=== PATIENT | male | born 1985 | race Hispanic/Latino ===

== ENCOUNTER 2018-02-12 19:56 | Observation (INO) | payer OTHER ==
[2018-02-12 20:48] LABS: Absolute Lymphocytes (CBC) 3.4 K/uL (0.7-4.9); Absolute Monocytes 0.8 K/uL (0.1-1.3); Absolute Neutrophil 7.5 K/uL (1.8-8.0); Eosinophils % 1.6 % (0-4.4); Hematocrit 56.1 % (39.6-49.0); Lymphocytes % 28.3 % (15.3-44.8); MCH 27.5 pg (27.0-35.0); MCV 84.5 fL (80-100); MPV 6.9 fL (7.6-11.3); Monocytes % 7.1 % (3.3-12.3); RBC Red Blood Cell Count 6.63 M/uL (4.33-5.43)
[2018-02-12 20:49] LABS: Protime INR 0.87
--- NOTE | 2018-02-12 20:51 | EDPHYS ---
Physician Documentation [facility] Name: Ascencion Saldana Age: 32 yrs Sex: Male : 1985 Arrival Date: 02/12/2018 Time: 19:58 Bed 25 Private MD: Ernesto Ramirez ED Physician Rey Reyes HPI: 02/12 20:23 This 32 yrs old Male presents to ER via Ambulatory with complaints of Chest catalina Pain. 20:23 The patient or guardian reports chest pain that is located primarily in the substernal catalina area. The pain radiates to the left shoulder, Associated signs and symptoms: Pertinent positives: shortness of breath. The chest pain is described as a heaviness, a pressure. Duration: The patient or guardian reports multiple episodes, that wax and wane. Modifying factors: The symptoms are alleviated by nothing. the symptoms are aggravated by nothing. Severity of pain: At its worst the pain was mild moderate in the emergency department the pain is unchanged. The patient has not experienced similar symptoms in the past. Historical: - Allergies: 20:16 No Known Allergies; bb - Home Meds: 21:07 enalapril maleate 10 mg Oral tab [Active]; Farxiga 10 mg oral tab 1 tab once daily bb [Active]; atorvastatin 20 mg oral tab 1 tab once daily [Active]; metformin 500 mg Oral tab [Active]; sertraline 100 mg oral tab [Active]; Bydureon subcutaneous subcutaneous [Active]; Novolog Sub-Q [Active]; - PMHx: 20:16 Depression; mental handicap; High Cholesterol; GERD; Sleep Apnea; bb 21:07 Diabetes - IDDM; bb - PSHx: 20:16 Cholecystectomy; bb - Immunization history:: Adult Immunizations up to date. - Social history:: Smoking status: Patient/guardian denies using tobacco, Patient/guardian denies using alcohol, street drugs. - Family history:: not pertinent. - Ebola Screening: : No symptoms or risks identified at this time. ROS: 20:23 Constitutional: Negative for fever, chills, and weight loss, Eyes: Negative for injury, catalina pain, redness, and discharge, ENT: Negative for injury, pain, and discharge, Neck: Negative for injury, pain, and swelling, Respiratory: Negative for shortness of breath, cough, wheezing, and pleuritic chest pain, Abdomen/GI: Negative for abdominal pain, nausea, vomiting, diarrhea, and constipation, Back: Negative for injury and pain, : Negative for injury, bleeding, discharge, and swelling, MS/Extremity: Negative for injury and deformity, Skin: Negative for injury, rash, and discoloration, Neuro: Negative for headache, weakness, numbness, tingling, and seizure, Psych: Negative for depression, anxiety, suicide ideation, homicidal ideation, and hallucinations, Allergy/Immunology: Negative for hives, rash, and allergies, Endocrine: Negative for neck swelling, polydipsia, polyuria, polyphagia, and marked weight changes, Hematologic/Lymphatic: Negative for swollen nodes, abnormal bleeding, and unusual bruising. 20:23 Cardiovascular: Positive for chest pain, of the chest. Exam: 20:23 Constitutional: This is a well developed, well nourished patient who is awake, alert, catalina and in no acute distress. Head/Face: Normocephalic, atraumatic. Eyes: Pupils equal round and reactive to light, extra-ocular motions intact. Lids and lashes normal. Conjunctiva and sclera are non-icteric and not injected. Cornea within normal limits. Periorbital areas with no swelling, redness, or edema. ENT: Nares patent. No nasal discharge, no septal abnormalities noted. Tympanic membranes are normal and external auditory canals are clear. Oropharynx with no redness, swelling, or masses, exudates, or evidence of obstruction, uvula midline. Mucous membranes moist. Neck: Trachea midline, no thyromegaly or masses palpated, and no cervical lymphadenopathy. Supple, full range of motion without nuchal rigidity, or vertebral point tenderness. No Meningismus. Chest/axilla: Normal chest wall appearance and motion. Nontender with no deformity. No lesions are appreciated. Cardiovascular: Regular rate and rhythm with a normal S1 and S2. No gallops, murmurs, or rubs. Normal PMI, no JVD. No pulse deficits. Respiratory: Lungs have equal breath sounds bilaterally, clear to auscultation and percussion. No rales, rhonchi or wheezes noted. No increased work of breathing, no retractions or nasal flaring. Abdomen/GI: Soft, non-tender, with normal bowel sounds. No distension or tympany. No guarding or rebound. No evidence of tenderness throughout. Back: No spinal tenderness. No costovertebral tenderness. Full range of motion. Male : Normal genitalia with no discharge or lesions. Skin: Warm, dry with normal turgor. Normal color with no rashes, no lesions, and no evidence of cellulitis. MS/ Extremity: Pulses equal, no cyanosis. Neurovascular intact. Full, normal range of motion. Neuro: Awake and alert, GCS 15, oriented to person, place, time, and situation. Cranial nerves II-XII grossly intact. Motor strength 5/5 in all extremities. Sensory grossly intact. Cerebellar exam normal. Normal gait. Psych: Awake, alert, with orientation to person, place and time. Behavior, mood, and affect are within normal limits. 20:23 Musculoskeletal/extremity: DVT Exam: no pain, no swelling, no tenderness, negative Homans' sign noted on exam, no appreciated bluish discoloration, no erythema, no increased warmth. Vital Signs: 20:16 BP 148 / 98; Pulse 91; Resp 14 S; Temp 98.2(O); Pulse Ox 96% on R/A; Weight 112.49 kg bb (R); Height 5 ft. 5 in. (165.10 cm) (R); Pain 8/10; 20:16 Body Mass Index 41.27 (112.49 kg, 165.10 cm) bb MDM: 20:17 Patient medically screened. [facility] 20:26 Data reviewed: vital signs, nurses notes, lab test result(s), EKG, radiologic studies, [facility] plain films. 02/12 20:17 Order name: Basic Metabolic Panel; Complete Time: 22:00 02/12 20:17 Order name: CBC with Diff; Complete Time: 22:00 02/12 20:17 Order name: LFT's; Complete Time: 22:00 02/12 20:17 Order name: Magnesium; Complete Time: 22:00 02/12 20: Order name: NT PRO-BNP; Complete Time: 22:00 02/12 20: Order name: PT-INR; Complete Time: 22:00 02/12 20:17 Order name: Troponin (emerg Dept Use Only); Complete Time: 22:00 02/12 20:22 Order name: Lipase; Complete Time: 22:00 [facility] 02/12 21:19 Order name: Urine Dipstick--Ancillary (enter results) ms 02/12 22:12 Order name: Urine Dipstick-Ancillary; Complete Time: 01:45 EDLA 02/13 02:26 Order name: Glucose, Ancillary Testing EDMS 02/13 06:01 Order name: CBC with Automated Diff EDMS 02/13 06:17 Order name: Troponin I EDMS 02/13 06:17 Order name: Basic Metabolic Panel EDMS 02/12 20:17 Order name: XRAY Chest (1 view) ea 02/12 20:17 Order name: EKG; Complete Time: 20:18 ea 02/12 20:17 Order name: Cardiac monitoring; Complete Time: 20:53 ea 02/12 20:17 Order name: EKG - Nurse/Tech; Complete Time: 20:54 ea 02/12 20:17 Order name: IV Saline Lock; Complete Time: 21:02 ea 02/12 20:17 Order name: Labs collected and sent; Complete Time: 21:02 ea 02/13 06:17 Order name: Lipid Profile EDLA 02/13 08:22 Order name: RAD EDLA 02/13 10:29 Order name: NM EDLA 02/12 20:17 Order name: O2 Per Protocol; Complete Time: 21:02 ea 02/12 20:17 Order name: O2 Sat Monitoring; Complete Time: 21:02 ea Administered Medications: 21:00 Drug: Aspirin Chewable Tablet 324 mg Route: PO; ea 22:17 Follow up: Response: No adverse reaction ea 21:00 Drug: Lovenox 100 mg Route: Sub-Q; Site: right lower abdomen; ea 22:17 Follow up: Response: No adverse reaction ea 21:00 Drug: Lopressor (metoprolol TARTRATE) 50 mg Route: PO; ea 22:17 Follow up: Response: No adverse reaction ea 21:00 Drug: morphine 2 mg Route: IVP; Site: left forearm; ea 21:30 Follow up: Response: No adverse reaction; Pain is decreased ea 21:00 Drug: Zofran 4 mg Route: IVP; Site: right antecubital; ea 22:18 Follow up: Response: No adverse reaction ea 21:02 Drug: Pepcid 20 mg Route: IVP; Site: right antecubital; ea 22:18 Follow up: Response: No adverse reaction ea 21:50 Drug: morphine 2 mg Route: IVP; Site: right antecubital; ea 22:42 Follow up: Response: No adverse reaction; Pain is decreased ak1 Disposition: 02/12/18 20:51 Hospitalization ordered by Eva Jorge for Observation. Preliminary diagnosis are Chest pain, unspecified, Essential (primary) hypertension, Type 2 diabetes mellitus, Obesity, unspecified. - Bed requested for Telemetry/MedSurg (observation). - Status is Observation. ed1 - Condition is Stable. - Problem is new. - Symptoms have improved. UTI on Admission? No Signatures: Dispatcher [employer] EDMS Sharon Gore RN Teri Myles RN Rey Padron MD MD cha Ballard, Brenda RN RN Hien Rosas LVN SOCIAL SERVICE TECHNICIAN ed1 Radha Licea RN RN ea Krenek, Amber RN ak1 Corrections: (The following items were deleted from the chart) 21:07 20:16 PMHx: Diabetes - NIDDM; bb zina 22:40 20:51 Hospitalization Ordered by Eva Jorge MD for Observation. Preliminary mw diagnosis is Chest pain, unspecified; Essential (primary) hypertension; Type 2 diabetes mellitus; Obesity, unspecified. Bed requested for Telemetry/MedSurg (observation). Status is Observation. Condition is Stable. Problem is new. Symptoms have improved. UTI on Admission? No. catalina 02/13 10:18 02/12 22:40 02/12/2018 20:51 Hospitalization Ordered by Eva Jorge MD for dw Observation. Preliminary diagnosis is Chest pain, unspecified; Essential (primary) hypertension; Type 2 diabetes mellitus; Obesity, unspecified. Bed requested for [facility] ER HOLD. Status is Observation. Condition is Stable. Problem is new. Symptoms have improved. UTI on Admission? No. mw 02/13 10:18 10:18 02/12/2018 20:51 Hospitalization Ordered by Eva Jorge MD for Observation. dw Preliminary diagnosis is Chest pain, unspecified; Essential (primary) hypertension; Type 2 diabetes mellitus; Obesity, unspecified. Bed requested for Telemetry/MedSurg (observation). Status is Observation. Condition is Stable. Problem is new. Symptoms have improved. UTI on Admission? No. dw 11:41 10:18 02/12/2018 20:51 Hospitalization Ordered by Eva Jorge MD for Observation. ed1 Preliminary diagnosis is Chest pain, unspecified; Essential (primary) hypertension; Type 2 diabetes mellitus; Obesity, unspecified. Bed requested for Telemetry/MedSurg (observation). Status is Observation. Condition is Stable. Problem is new. Symptoms have improved. UTI on Admission? No. dw
--- NOTE | 2018-02-12 20:51 | ER ---
Nurse's Notes [facility] Name: Ascencion Saldana Age: 32 yrs Sex: Male : 1985 Arrival Date: 02/12/2018 Time: 19:58 Bed 25 Private MD: Ernesto Ramirez Diagnosis: Chest pain, unspecified;Essential (primary) hypertension;Type 2 diabetes mellitus;Obesity, unspecified Presentation: 02/12 20:12 Presenting complaint: Patient states: he has been having chest pain for several days bb with numbness to his left arm and some shortness of breath. Transition of care: patient was not received from another setting of care. Onset of symptoms was February 10, 2018. Risk Assessment: Do you want to hurt yourself or someone else? Patient reports no desire to harm self or others. Initial Sepsis Screen: Does the patient meet any 2 criteria? No. Patient's initial sepsis screen is negative. Does the patient have a suspected source of infection? No. Patient's initial sepsis screen is negative. Care prior to arrival: None. 20:12 Method Of Arrival: Ambulatory bb 20:12 Acuity: CAROLE 3 bb Historical: - Allergies: 20:16 No Known Allergies; bb - Home Meds: 21:07 enalapril maleate 10 mg Oral tab [Active]; Farxiga 10 mg oral tab 1 tab once daily bb [Active]; atorvastatin 20 mg oral tab 1 tab once daily [Active]; metformin 500 mg Oral tab [Active]; sertraline 100 mg oral tab [Active]; Bydureon subcutaneous subcutaneous [Active]; Novolog Sub-Q [Active]; - PMHx: 20:16 Depression; mental handicap; High Cholesterol; GERD; Sleep Apnea; bb 21:07 Diabetes - IDDM; bb - PSHx: 20:16 Cholecystectomy; bb - Immunization history:: Adult Immunizations up to date. - Social history:: Smoking status: Patient/guardian denies using tobacco, Patient/guardian denies using alcohol, street drugs. - Family history:: not pertinent. - Ebola Screening: : No symptoms or risks identified at this time. Screenin:16 Abuse screen: Denies threats or abuse. Nutritional screening: No deficits noted. ea Tuberculosis screening: No symptoms or risk factors identified. Fall Risk None identified. Assessment: 20:16 General: Appears uncomfortable, Behavior is calm, cooperative, appropriate for age. ea Pain: Complains of pain in mid-sternal area Pain does not radiate. Pain currently is 8 out of 10 on a pain scale. Quality of pain is described as aching, Pain began gradually. Neuro: Level of Consciousness is awake, alert, obeys commands, Oriented to person, place, time, situation. Cardiovascular: Heart tones S1 S2 present Patient's skin is warm and dry. Respiratory: Airway is patent Respiratory effort is even, unlabored, Respiratory pattern is regular, symmetrical, Breath sounds are clear bilaterally. Derm: Skin is pink, warm \T\ dry. 21:50 Reassessment: Patient and/or family updated on plan of care and expected duration. Pain ea level reassessed. Patient is alert, oriented x 3, equal unlabored respirations, skin warm/dry/pink. Patient states symptoms have improved. 22:19 Reassessment: No changes from previously documented assessment. Patient and/or family ea updated on plan of care and expected duration. Pain level reassessed. 22:44 Reassessment: pt moved to ER5 and placed in a hospital bed for comfort. ak1 Vital Signs: 20:16 BP 148 / 98; Pulse 91; Resp 14 S; Temp 98.2(O); Pulse Ox 96% on R/A; Weight 112.49 kg bb (R); Height 5 ft. 5 in. (165.10 cm) (R); Pain 8/10; 20:16 Body Mass Index 41.27 (112.49 kg, 165.10 cm) bb ED Course: 19:58 Patient arrived in ED. al2 19:58 Ernesto Ramirez MD is Private Physician. al2 20:13 Patient has correct armband on for positive identification. Placed in gown. Bed in low ak1 position. Call light in reach. Side rails up X 1. Adult w/ patient. secured entrance monitor on. Pulse ox on. NIBP on. 20:13 EKG done, by ED staff. ak1 20:14 Triage completed. bb 20:16 Radha Licea, SAYRA is Primary Nurse. ea 20:16 Arm band placed on Patient placed in an exam room, on a stretcher, on court recording monitor, bb on pulse oximetry. EKG completed in triage. Results shown to MD. Family accompanied patient. 20:16 Patient maintains SpO2 saturation greater than 95% on room air. ea 20:17 Rey Reyes MD is Attending Physician. catalina 20:50 Eva Jorge MD is Hospitalizing Provider. catalina 21:14 Urine collected: clean catch specimen, hero colored. oe 21:55 Inserted saline lock: 20 gauge in left forearm, using aseptic technique. ea 22:43 XRAY Chest (1 view) Sent. ak1 22:43 No provider procedures requiring assistance completed. ak1 22:43 Patient admitted, IV remains in place. ak1 02/13 10:08 Note: STRESS TEST COMPLETE. NO CHANGE IN PT STATUS. PT TRANSPORTED TO CARDIOLOGY DEPT 1 FOR ECHO. RT NITA(N), CAREER DEVELOPMENT COORDINATOR/TEACHER. Administered Medications: 02/12 21:00 Drug: Aspirin Chewable Tablet 324 mg Route: PO; ea 22:17 Follow up: Response: No adverse reaction ea 21:00 Drug: Lovenox 100 mg Route: Sub-Q; Site: right lower abdomen; ea 22:17 Follow up: Response: No adverse reaction ea 21:00 Drug: Lopressor (metoprolol TARTRATE) 50 mg Route: PO; ea 22:17 Follow up: Response: No adverse reaction ea 21:00 Drug: morphine 2 mg Route: IVP; Site: left forearm; ea 21:30 Follow up: Response: No adverse reaction; Pain is decreased ea 21:00 Drug: Zofran 4 mg Route: IVP; Site: right antecubital; ea 22:18 Follow up: Response: No adverse reaction ea 21:02 Drug: Pepcid 20 mg Route: IVP; Site: right antecubital; ea 22:18 Follow up: Response: No adverse reaction ea 21:50 Drug: morphine 2 mg Route: IVP; Site: right antecubital; ea 22:42 Follow up: Response: No adverse reaction; Pain is decreased ak1 Outcome: 20:51 Decision to Hospitalize by Provider. catalina 22:43 Admitted to ER Hold. Please see [facility] for further documentation. ak1 22:43 Condition: stable 22:43 Instructed on the need for admit. 02/13 11:33 Admitted to Tele accompanied by tech, via stretcher, room 431, with chart, Report ed1 called to SAYRA Morales 11:41 Patient left the ED. ed1 Signatures: Rey Reyes MD MD cha Harvey, Martha mh1 Sara Sauceda RN RN bb Hien Lopez, ASSISTANT PROFESSOR OF DIETETICS ASSISTANT PROFESSOR OF DIETETICS ed1 Hero Andres RN RN ak1 Xavi Contreras Elena, RN RN roxie Elkins, Yudith sherman2 Corrections: (The following items were deleted from the chart) 02/12 21:07 20:16 PMHx: Diabetes - NIDDM; zina izaguirre 02/13 11:34 11:33 Admitted to Tele accompanied by tech, via stretcher, room 4, with chart, Report ed1 called to SAYRA Morales ed1
[2018-02-12] MEDS ORDERED: METOPROLOL TAR 50 MG TAB ONE (20:56)
[2018-02-12] MEDS ORDERED: ASPIRIN 81 MG CHEWABLE TABLET ONE (20:56)
[2018-02-12] MEDS ORDERED: FAMOTIDINE 20 MG/2 ML VIAL IV ONE (20:57)
[2018-02-12] MEDS ORDERED: MORPHINE 4 MG/ML SYR ONE (20:57)
[2018-02-12] MEDS ORDERED: ENOXAPARIN 100 MG/ML SYR SQ ONE (20:57)
[2018-02-12] MEDS ORDERED: ONDANSETRON 4 MG/2 ML VIAL ONE (20:57)
[2018-02-12 21:19] LABS: ALT/SGPT 35 U/L (12-78); AST/SGOT 22 U/L (15-37); Albumin 3.8 g/dL (3.4-5.0); Alkaline Phosphatase 105 U/L (45-117); BUN Blood Urea Nitrogen 13 mg/dL (7-18); Bicarbonate 28 mmol/L (21-32); Bilirubin Direct 0.1 mg/dL (0-0.2); Bilirubin Total 0.3 mg/dL (0.2-1.0); Glucose Level 148 mg/dL (74-106); Magnesium 2.3 mg/dL (1.8-2.4); NT PRO-BNP 7 pg/mL (<125); Protein, Total 7.5 g/dL (6.4-8.2); Sodium Level 140 mmol/L (136-145); Troponin (Emerg Dept Use Only) < 0.02 ng/mL (0.0-0.045)
--- NOTE | 2018-02-12 21:46 | P.HP ---
Certification for Inpatient Patient admitted to: Observation With expected LOS: <2 Midnights Practitioner: I am a practitioner with admitting privileges, knowledge of patient current condition, hospital course, and medical plan of care. Services: Services provided to patient in accordance with Admission requirements found in Title 42 Section 412.3 of the Code of Federal Regulations Patient History Date of Service: 02/12/18 Reason for admission: chest pain History of Present Illness: Mr Saldana is a 32 years old male with history of DM 2, obesity, dyslipidemia, HTM, who start with recurrent episodes of chest pain since 2-3 days ago. The pain is described as burning sensation in the middle of his chest, 8/10 of intensity, lasting for 30 mins every time, associated with SOB. He denied nausea or diaphoresis episodes. He has never had this pain in the past. He states that the pain radiate to his left arm and feels some numbness. The pain is getting worse with chest movements, palpation over sternal area, reproduce the pain. He states that is doing treadmill but not lifting weight. No history of recent trauma on his chest. EKG shows non-specific T wave abnormalities, initial torp I is negative. Allergies No Known Allergies Allergy (Verified 08/11/16 08:07) Home medications list reviewed: Yes Home Medications: Canagliflozin [Invokana] 100 mg PO DAILY AFTER SUPPER 08/09/16 Desipramine HCl 100 mg PO DAILY AFTER SUPPER 08/09/16 Enalapril [Vasotec] 10 mg PO DAILY AFTER SUPPER 08/09/16 Exenatide Microspheres [Bydureon Pen] 2 mg SQ EVERY 7TH DAY 08/09/16 Metformin HCl [Glucophage] 1,000 mg PO BID 08/09/16 Simvastatin [Zocor] 80 mg PO DAILY AFTER SUPPER 08/09/16 Sumatriptan [Imitrex] 100 mg PO DAILY AFTER SUPPER 08/09/16 - Past Medical/Surgical History -: obesity -: diabetes mellitus -: HTN -: sleep apnea -: dyslipidemia -: Cholecystectomy - Family History Family History: Reviewed- Non-Contributory - Social History CD- Drugs: No Caffeine use: No Place of Residence: Home Physical Examination - Physical Exam General: Alert, In no apparent distress HEENT: Atraumatic, PERRLA, Mucous membr. moist/pink, EOMI, Sclerae nonicteric Neck: Supple, 2+ carotid pulse no bruit, No LAD, Without JVD or thyroid abnormality Respiratory: Clear to auscultation bilaterally, Normal air movement Cardiovascular: Regular rate/rhythm, Normal S1 S2 Gastrointestinal: Normal bowel sounds, No tenderness Musculoskeletal: No tenderness, Tenderness (to palpation in sternal area.) Integumentary: No rashes Neurological: Normal gait, Normal speech, Normal strength at 5/5 x4 extr, Normal tone, Normal affect Lymphatics: No axilla or inguinal lymphadenopathy - Studies Laboratory Data (last 24 hrs) 02/12/18 20:20: Lipase 238 02/12/18 20:20: PT 10.3, INR 0.87 02/12/18 20:20: WBC 12.0 H, Hgb 18.3 H, Hct 56.1 H, Plt Count 322 02/12/18 20:20: Sodium 140, Potassium 4.0, BUN 13, Creatinine 0.90, Glucose 148 H, Magnesium 2.3, Total Bilirubin 0.3, AST 22, ALT 35, Alkaline Phosphatase 105 Assessment and Plan - Problems (Diagnosis) (1) Chest pain Current Visit: Yes Status: Acute Qualifiers: Chest pain type: chest pain on breathing Qualified Code(s): R07.1 - Chest pain on breathing; R07.81 - Pleurodynia (2) Diabetes mellitus Current Visit: Yes Status: Acute Qualifiers: Diabetes mellitus type: type 2 Diabetes mellitus commercial instructor supervisor insulin use: without mcfp use Diabetes mellitus complication status: with unspecified complications Qualified Code(s): E11.8 - Type 2 diabetes mellitus with unspecified complications (3) HTN (hypertension) Current Visit: Yes Status: Acute Qualifiers: Hypertension type: essential hypertension Qualified Code(s): I10 - Essential (primary) hypertension (4) Dyslipidemia Current Visit: Yes Status: Acute (5) Obesity Current Visit: Yes Status: Acute Qualifiers: Obesity type: unspecified obesity type Obesity classification: unspecified obesity classification Serious obesity comorbidity presence: unspecified whether serious comorbidity present Qualified Code(s): E66.9 - Obesity, unspecified - Plan The patient will be admitted to the hospital due to chest pain. It seems to be atypical per nature, initial trop I is negative, EKG shows non-specific T wave abnormalities. Will repeat serial cardiac enzymes and EKG, consult Cardiology team for evaluation and recommendations. - Advance Directives Does patient have a Living Will: No Does patient have a Durable POA for Healthcare: No - Code Status/Comfort Care Code Status Assessed: Yes Code Status: Full Code
[2018-02-12 22:11] LABS: Urine Blood NEGATIVE (NEG); Urine Glucose 2+ (NEG); Urine Protein NEGATIVE (NEG); Urine Specific Gravity 1.025 (1.005-1.030); Urine pH 5.5 (5.0-7.0)
[2018-02-12] MEDS ORDERED: TRAMADOL HCL 50 MG TAB PO PRN (22:46)
[2018-02-12] MEDS ORDERED: ONDANSETRON 4 MG/2 ML VIAL IV PRN (22:46)
[2018-02-12] MEDS ORDERED: ACETAMINOPHEN 500 MG TAB PO PRN (22:46)
[2018-02-12] MEDS ORDERED: KETOROLAC 30 MG/ML INJ IV PRN (22:46)
[2018-02-13] MEDS ORDERED: KETOROLAC 30 MG/ML INJ ONE (02:13)
--- NOTE | 2018-02-13 05:45 | EKG ---
Test Date: 2018-02-13 Test Time: 01:47:43 Office Manager: MEASUREMENT RESULTS: Intervals: Rate: 67 ID: [id number] QRSD: 82 QT: 386 QTc: 407 [place]: P: 33 ID: [id number] QRS: 46 T: 42 INTERPRETIVE STATEMENTS: Normal sinus rhythm Nonspecific ST and T wave abnormality Abnormal ECG No previous ECG available for comparison Electronically Signed On 02-13-18 05:44:48 DIVINITY PROFESSOR by Herminio Gaming
--- NOTE | 2018-02-13 05:46 | EKG ---
Test Date: 2018-02-12 Test Time: 20:11:05 [employer] Architect: DARLENE MEASUREMENT RESULTS: Intervals: Rate: 86 CA: 136 QRSD: 78 QT: 344 QTc: 411 [place]: P: 24 CA: 136 QRS: 35 T: 42 INTERPRETIVE STATEMENTS: Normal sinus rhythm Nonspecific T wave abnormality Abnormal ECG No previous ECG available for comparison Electronically Signed On 02-13-18 05:45:24 ESTATE ADMINISTRATOR by Herminio Gaming
[2018-02-13 05:57] LABS: Absolute Lymphocytes (CBC) 3.4 K/uL (0.7-4.9); Absolute Monocytes 0.8 K/uL (0.1-1.3); Absolute Neutrophil 5.9 K/uL (1.8-8.0); Basophils % 0.9 % (0-1.3); Hematocrit 53.7 % (39.6-49.0); Lymphocytes % 32.5 % (15.3-44.8); MCH 27.8 pg (27.0-35.0); MCV 84.8 fL (80-100); MPV 6.6 fL (7.6-11.3); Monocytes % 7.6 % (3.3-12.3); RBC Red Blood Cell Count 6.33 M/uL (4.33-5.43)
[2018-02-13] MEDS: INSULIN -REGULAR HUMAN 50 UNIT/0.5 ML ML SQ SCH ×3 (06:00→12:00)
[2018-02-13 06:17] LABS: Potassium 4.1 mmol/L (3.5-5.1)
[2018-02-13] MEDS ORDERED: INFLUENZA VACCINE (for 3y+) 0.5 ML DOSE IMVAC ONE (08:00)
[2018-02-13] MEDS ORDERED: REGADENOSON 0.4 MG/5 ML SYR IV ONE (08:06)
--- NOTE | 2018-02-13 08:21 | RAD REPORT ---
EXAM DESCRIPTION: [place] Single View02/12/2018 9:55 pm CLINICAL HISTORY: Chest pain COMPARISON: none FINDINGS: The lungs appear clear of acute infiltrate. The heart is normal size IMPRESSION: No acute abnormalities displayed
[2018-02-13] MEDS ORDERED: ENOXAPARIN 40 MG/0.4 ML SQ ONE (08:38)
[2018-02-13] MEDS ORDERED: ENOXAPARIN 40 MG/0.4 ML SQ SCH ×2 (09:00→21:00)
--- NOTE | 2018-02-13 10:28 | RAD REPORT ---
EXAM DESCRIPTION: NM - Rest Stress Cardiac Imaging - 02/13/2018 10:12 am CLINICAL HISTORY: Chest pain COMPARISON: None. TECHNIQUE: The patient was administered approximately 10 mCi of Tc 99m Sestamibi prior to resting SP ECT imaging of the heart. The patient was then administered approximately 30 mCi of Tc 99m Sestamibi following exercise or pharmacologic stress. Multiplanar SPECT images were reviewed. FINDINGS: The end diastolic volume is 133 ml, the end systolic volume is 76 ml, and the ejection fra ction is 43 %. No stress-induced ischemic changes confirmed on this study. Patient has a moderately large fixed defe ct in the inferior wall involving the base and midportion. This is not clearly different from rest an d stress imaging. Scarring and attenuation artifact from diaphragm are both possible. IMPRESSION: No stress-induced ischemic change identified. Scarring versus attenuation artifact in the base and midportion of the inferior wall. End-diastolic volume was 133 milliliters. Ejection fraction is below normal at 43%
--- NOTE | 2018-02-13 10:30 | TREADPHA ---
DX: CHEST PAIN Date of Study: 02/13/18 Ht: 5 5 Wt: 247 lb 15.968 oz Consulting Physician: ASHLEY MEDICATIONS: TYLENOL, LOVENOX, NOVOLIN, TORADOL, ZOFRAN, ULTRAM HISTORY: 32 YEAR OLD MALE HERE FOR CHEST PAIN. HISTORY OF DIABETES AND DEPRESSION. PHYSICIAL EXAMINATION: RESTING B.P.: 127/82 RESTING H.R.: 70 RESTING EKG: NORMAL SINUS RHYTHM, NORMAL ST. PROTOCOL: LEXISCAN EXERCISE TIME: 3:30 B.P. AT PEAK STRESS: 120/64 IMPRESSION: LEXISCAN STRESS TEST COMPLETED. CARDIOLITE INJECTED PER PROTOCOL. NO ARRHYTHMIAS NOTED. DENIES ANY CHEST PAIN. SEE NUCLEAR MEDICINE REPORT.
--- NOTE | 2018-02-13 11:21 | ECHO ---
HEIGHT: 5 ft 5 in WEIGHT: 247 lb 15.968 oz DATE OF STUDY: 02/13/[address]: Santiago Griffith MD 2-DIMENSIONAL: YES M.MODE: YES DOPPLER: YES COLOR FLOW: YES TDS: NO PORTABLE: NO DEFINITY: NO BUBBLE STUDY: NO DIAGNOSIS: CHEST PAIN CARDIAC HISTORY: CATHERIZATION: NO SURGERY: NO PROSTHETIC VALVE: NO PACEMAKER: NO MEASUREMENTS (cm) DIASTOLIC (NORMALS) SYSTOLIC (NORMALS) IVSd 1.1 (0.6-1.2) LA Diam 3.9 (1.9-4.0) LVEF 55% LVIDd 3.9 (3.5-5.7) LVIDs 2.8 (2.0-3.5) %FS 28% LVPWd 1.1 (0.6-1.2) Ao Diam 2.4 (2.0-3.7) 2 DIMENSIONAL ASSESSMENT: RIGHT ATRIUM: NORMAL LEFT ATRIUM: NORMAL RIGHT VENTRICLE: NORMAL LEFT VENTRICLE: NORMAL TRICUSPID VALVE: NORMAL MITRAL VALVE: NORMAL PULMONIC VALVE: NORMAL AORTIC VALVE: NORMAL PERICARDIAL EFFUSION: NONE AORTIC ROOT: NORMAL LEFT VENTRICULAR WALL MOTION: NORMAL. DOPPLER/COLOR FLOW: NORMAL. COMMENTS: NORMAL 2D ECHO WITH DOPPLER. NO WALL MOTION ABNORMALITY. NO EFFUSION. TECHNOLOGIST: KRIS GERARD
[2018-02-13] MEDS ORDERED: PNEUMOCOCCAL VACCINE 0.5 ML IMVAC ONE (14:00)
[2018-02-13] MEDS ORDERED: PANTOPRAZOLE 40MG TABLET PO SCH (14:00)
--- NOTE | 2018-02-13 14:50 | P.DS ---
Admission Date: 02/12/18 Discharge Date: 02/13/18 Disposition: ROUTINE DISCHARGE Discharge Condition: GOOD Reason for Admission: chest pain Consultations: Cardiology Procedures: Cardiac stress test Brief History of Present Illness: From H and P Mr Saldana is a 32 years old male with history of DM 2, obesity, dyslipidemia, HTM, who start with recurrent episodes of chest pain since 2-3 days ago. The pain is described as burning sensation in the middle of his chest, 8/10 of intensity, lasting for 30 mins every time, associated with SOB. He denied nausea or diaphoresis episodes. He has never had this pain in the past. He states that the pain radiate to his left arm and feels some numbness. The pain is getting worse with chest movements, palpation over sternal area, reproduce the pain. He states that is doing treadmill but not lifting weight. No history of recent trauma on his chest. EKG shows non-specific T wave abnormalities, initial torp I is negative. Hospital Course: Patient is a 32-year-old obese male with past medical history of hypertension hyperlipidemia and diabetes who comes into the hospital with atypical chest pain. Patient's cardiac enzymes were obtained as well as EKG to rule out acute coronary syndrome. His cardiac markers were negative. Patient was seen by cardiology and stress test was ordered. Cardiac stress test came back negative. Echocardiogram showed old normal ejection fraction no structural abnormalities. Patient was thought to have atypical chest pain resulting from acid reflux symptoms. Patient's symptoms worsened with laying down described burning type feeling in the middle of his chest. Patient will be started on PPI for 1 month. He was also instructed to stop eating and drinking 4 hr prior to sleepy and to avoid foods that are high in this EGD which trigger his acid reflux. Also to elevate the head of the bed to about 20. Patient understood voiced understanding all questions were answered. Patient will likely need GI follow up as outpatient to rule out any ulcers or H-pylori infection causing ulcers. Patient was then cleared for discharge as his symptoms had improved. I spoke to Dr. Griffith regarding the patient's care. Vital Signs/Physical Exam: Temp Pulse Resp BP Pulse Ox 98.2 F 71 16 109/79 96 02/13/18 08:00 02/13/18 08:00 02/13/18 08:00 02/13/18 08:00 02/13/18 08:00 General: Alert, In no apparent distress, Oriented x3, Obese HEENT: Atraumatic, PERRLA, EOMI Neck: Supple, JVD not distended Respiratory: Clear to auscultation bilaterally, Normal air movement Cardiovascular: No edema, Normal pulses, Regular rate/rhythm, Normal S1 S2 Gastrointestinal: Normal bowel sounds, Soft and benign, Non-distended, No tenderness Musculoskeletal: No tenderness Integumentary: No rashes, No erythema Neurological: Normal gait, Normal speech, Normal strength at 5/5 x4 extr, Normal tone, Cranial nerves 3-12 intact, Normal affect Laboratory Data at Discharge: WBC 10.4 K/uL (4.3-10.9) 02/13/18 05:44 Hgb 17.6 g/dL (13.6-17.9) 02/13/18 05:44 Hct 53.7 % (39.6-49.0) H 02/13/18 05:44 Plt Count 321 K/uL (152-406) 02/13/18 05:44 PT 10.3 SECONDS (9.5-12.5) 02/12/18 20:20 INR 0.87 02/12/18 20:20 Sodium 140 mmol/L (136-145) 02/13/18 05:44 Potassium 4.1 mmol/L (3.5-5.1) 02/13/18 05:44 BUN 17 mg/dL (7-18) 02/13/18 05:44 Creatinine 1.00 mg/dL (0.55-1.3) 02/13/18 05:44 Glucose 157 mg/dL (74-106) H 02/13/18 05:44 Magnesium 2.3 mg/dL (1.8-2.4) 02/12/18 20:20 Total Bilirubin 0.3 mg/dL (0.2-1.0) 02/12/18 20:20 AST 22 U/L (15-37) 02/12/18 20:20 ALT 35 U/L (12-78) 02/12/18 20:20 Alkaline Phosphatase 105 U/L (45-117) 02/12/18 20:20 Troponin I < 0.02 ng/mL (0.0-0.045) 02/13/18 12:50 Triglycerides 281 mg/dL (<150) H 02/13/18 05:44 Cholesterol 151 mg/dL (<200) 02/13/18 05:44 HDL Cholesterol 27 mg/dL (40-60) L 02/13/18 05:44 Cholesterol/HDL Ratio 5.59 02/13/18 05:44 Lipase 238 U/L (73-393) 02/12/18 20:20 Home Medications: Canagliflozin [Invokana] 100 mg PO DAILY AFTER SUPPER 08/09/16 Desipramine HCl 100 mg PO DAILY AFTER SUPPER 08/09/16 Enalapril [Vasotec*] 10 mg PO DAILY AFTER SUPPER 08/09/16 Exenatide Microspheres [Bydureon Pen] 2 mg SQ EVERY 7TH DAY 08/09/16 Metformin HCl [Glucophage] 1,000 mg PO BID 08/09/16 Simvastatin [Zocor] 80 mg PO DAILY AFTER SUPPER 08/09/16 Sumatriptan [Imitrex*] 100 mg PO DAILY AFTER SUPPER 08/09/16 Pantoprazole [Protonix Tab*] 40 mg PO DAILY #30 tab 02/13/18 New Medications: Pantoprazole [Protonix Tab*] 40 mg PO DAILY #30 tab Patient Discharge Instructions: f/up w PCP in 2-3 days. f/up w investigator internal affairs Dr. Griffith in 2 weeks. Return to ER for worsening condition Diet: AHA Followup: Santiago Griffith MD [ACTIVE - CAN ADMIT] - Ernesto Ramirez MD [Primary Care Provider] -
[2018-02-13] MEDS ORDERED: CANAGLIFLOZIN 100 MG PO SCH (17:30)
[2018-02-13] MEDS ORDERED: DESIPRAMINE HCL PO SCH (17:30)
[2018-02-13] MEDS ORDERED: SUMATRIPTAN SUCCI 50 MG TAB PO SCH (17:30)
[2018-02-13] MEDS ORDERED: ENALAPRIL 10 MG TAB PO SCH (17:30)
[2018-02-13] MEDS ORDERED: ATORVASTATIN 40 MG TAB PO SCH (21:00)
--- NOTE | 2018-02-14 15:19 | CON ---
Date of Consultation: 02/13/[address] Powell's service on 02/12/2018, seen on 02/13/2018. Reason For Consultation: Chest pain. History Of Present Illness: The patient is a 32-year-old, has a history of migraine, diabetes, dysli pidemia, hypertension, obesity, depression, gastroesophageal reflux disease, sleep apnea, status post recent cholecystectomy. Came in with sharp stabbing chest pain. No radiation. No nausea, vomiting , diaphoresis, PND, orthopnea, pedal edema, palpitations, or syncope. Workup so far included an EKG, which was nonspecific. Troponin was negative. Allergies: NONE. Review of Systems: Negative. Social History: Negative. Family History: Negative. Medications: At home include, Vasotec, Invokana, Glucophage, Zocor, and Imitrex. Physical Examination: Vital Signs: Stable. Afebrile. HEENT: Negative. Neck: Supple with no bruit. Chest: Clear. Cardiac: Reveals regular rhythm and rate. No murmurs, gallops, or rubs. Abdomen: Benign. Extremities: Revealed no clubbing, cyanosis, or edema. Diagnostic Data: Within normal limits except for a glucose of 157 and HDL of 27, triglycerides 281. Impression And Plan: Atypical chest pain in a patient with multiple cardiac risk factors, although socorro rodriguez is very young. An echocardiogram and Lexiscan are pending. We will see what those show prior to m carolg final decisions. His other problems include dyslipidemia that is poorly controlled. He may be nefit from a higher dose of Zocor and maybe the addition of niacin as well, although that may interfe re with his sugar. His blood pressure is well controlled. We will see what his testings show prior to making final decisions. DAVID/COMPA Voice ID: [id number] Report ID: [id number]
== END 2018-02-13 15:08 | disposition home or self-care (01) ==
LOC: ER 19:56 → ERHOLD 20:51 → 4TH 02-13 11:17
PROVIDERS: ADMIT Internal Medicine; ATTEND Internal Medicine
DX: R07.9 Chest pain, unspecified (principal); E11.9 Type 2 diabetes mellitus without complications; E66.9 Obesity, unspecified; Z68.41 Body mass index [BMI] 40.0-44.9, adult; E78.5 Hyperlipidemia, unspecified; I10 Essential (primary) hypertension; Z23 Encounter for immunization
CPT/HCPCS: 36415; 71045; 78452; 80048; 80061; 80076; 81003; 82962; 83690; 83735; 83880; 84484; 85025; 85610; 90670; 93005; 93017; 93306; 96372; 96374; 96375; 99285; A9500; G0009; G0378; J1650; J2405; J2785

== ENCOUNTER 2021-03-28 09:31 | Inpatient (IN) | payer OTHER ==
[2021-03-28] MEDS ORDERED: NA CHLORIDE 0.9% 1,000 ML ONE (09:32)
[2021-03-28] MEDS ORDERED: D50W 25 GM/50 ML SYRINGE IV ONE (09:32)
[2021-03-28] MEDS ORDERED: HYDROCORTISONE SUC 100 MG INJ ONE (09:38)
[2021-03-28 09:50] LABS: Absolute Lymphocytes (CBC) 1.8 K/uL (0.7-4.9); Hematocrit 56.1 % (39.6-49.0); Lymphocytes % 10.6 % (15.3-44.8); MPV 6.3 fL (7.6-11.3); RBC Red Blood Cell Count 6.74 M/uL (4.33-5.43)
[2021-03-28 10:07] LABS: ALT/SGPT 40 U/L (12-78); AST/SGOT 30 U/L (15-37); Alkaline Phosphatase 94 U/L (45-117); BUN Blood Urea Nitrogen 11 mg/dL (7-18); Bicarbonate 29 mmol/L (21-32); Bilirubin Direct < 0.1 mg/dL (0-0.2); Bilirubin Total 0.2 mg/dL (0.2-1.0); Glucose Level 101 mg/dL (74-106); Magnesium 2.7 mg/dL (1.8-2.4); NT PRO-BNP 10 pg/mL (<125); Potassium 3.6 mmol/L (3.5-5.1); Protein, Total 8.5 g/dL (6.4-8.2); Sodium Level 141 mmol/L (136-145)
[2021-03-28] MEDS ORDERED: ALBUTEROL 2.5 MG/3 ML NEB SOL NEB PRN (13:46)
[2021-03-28] MEDS ORDERED: MORPHINE 2 MG/ML SYR IV PRN (13:46)
[2021-03-28] MEDS ORDERED: ACETAMINOPHEN 500 MG TAB PO PRN (13:46)
[2021-03-28] MEDS ORDERED: HYDRALAZINE HCL 20 MG/ML VIAL IV PRN (13:47)
--- NOTE | 2021-03-28 13:47 | EDPHYS ---
Physician Documentation [facility] Name: Ascencion Saldana Jr Age: 35 yrs Sex: Male : 1985 Arrival Date: 03/28/2021 Time: 09:33 Bed 4 Private MD: ED Physician Vaibhav Bacon HPI: 03/28 09:34 This 35 yrs old Male presents to ER via EMS with complaints of Low Blood Sugar.jm 09:34 Onset: The symptoms/episode began/occurred acutely, just prior to arrival. This is a 35 jmm year old male with a history of DM, HLP, that presents to the ED with complaints of low BGL. Patient found in garage just prior to arrival. Family checked BGL which was 35. Patient states taking tresiba around midnight. Patient denies chest pain, abdominal pain, shortness of breath. . Historical: - Allergies: 09:34 No Known Allergies; ss - Home Meds: 10:14 atorvastatin 20 mg Oral tab 1 tab once daily [Active]; metformin 500 mg Oral tab laird [Active]; sertraline 100 mg Oral tab [Active]; enalapril maleate 10 mg Oral tab [Active]; Jardiance 25 mg oral tab [Active]; buspirone 30 mg Oral tab [Active]; - PMHx: 09:34 Depression; Diabetes - IDDM; GERD; High Cholesterol; mental handicap; Sleep Apnea; ss - Immunization history:: Adult Immunizations unknown. - Social history:: Smoking status: Patient denies any tobacco usage or history of. ROS: 09:34 Constitutional: Negative for fever, chills, and weight loss, Cardiovascular: Negative jmm for chest pain, palpitations, and edema, Respiratory: Negative for shortness of breath, cough, wheezing, and pleuritic chest pain, Abdomen/GI: Negative for abdominal pain, nausea, vomiting, diarrhea, and constipation. 09:34 Neuro: Positive for syncope. 09:34 All other systems are negative. Exam: 09:34 Constitutional: This is a well developed, well nourished patient who is awake, alert, jmm and in no acute distress. Head/Face: atraumatic. Eyes: EOMI, no conjunctival erythema appreciated ENT: Moist Mucus Membranes Neck: Trachea midline, Supple Chest/axilla: Normal chest wall appearance and motion. Cardiovascular: Regular rate and rhythm. No edema appreciated Respiratory: Normal respirations, no respiratory distress appreciated Abdomen/GI: Non distended, soft Back: Normal ROM Skin: General appearance color normal MS/ Extremity: Moves all extremities, no obvious deformities appreciated, no edema noted to the lower extremities Neuro: Awake and alert, normal gait Psych: Behavior is normal, Mood is normal, Patient is cooperative and pleasant Vital Signs: 09:30 BP 161 / 116; Pulse 91; Resp 18; Temp 97.4(O); Pulse Ox 100% on R/A; Weight 120.2 kg; ss Height 5 ft. 5 in. (165.10 cm); Pain 0/10; 11:13 BP 136 / 87; Pulse 94; Resp 18 S; Pulse Ox 100% on R/A; ic1 12:30 BP 141 / 97; Pulse 84; Resp 15; Pulse Ox 98% ; jl7 13:39 BP 158 / 95; Pulse 90; Resp 15; Pulse Ox 99% ; jl7 16:43 BP 142 / 91; Pulse 87; Resp 18; Pulse Ox 100% ; ic1 18:09 BP 153 / 98; Pulse 105; Resp 18; Pulse Ox 96% on R/A; ic1 09:30 Body Mass Index 44.10 (120.20 kg, 165.10 cm) ss MDM: 09:38 Patient medically screened. blayne 13:46 Data reviewed: vital signs, nurses notes. Counseling: I had a detailed discussion with blayne the patient and/or guardian regarding: the historical points, exam findings, and any diagnostic results supporting the discharge/admit diagnosis, lab results, the need for outpatient follow up, the need for further work-up and treatment in the hospital. 03/28 09:34 Order name: Basic Metabolic Panel; Complete [facility]: [facility] 03/28 09:34 Order name: CBC with Diff; Complete Time: [facility] 03/28 09:34 Order name: LFT's; Complete Time: 10: [facility] 03/28 09:34 Order name: Magnesium; Complete Time: [facility] 03/28 09:34 Order name: NT PRO-BNP; Complete Time: [facility]: [facility] 03/28 09:34 Order name: PT-INR; Complete Time: 10: [facility] 03/28 09:34 Order name: Troponin HS; Complete Time: 10:09 [facility] 03/28 09:46 Order name: Glucose, Ancillary Testing; Complete Time: 10:09 [facility] 03/28 10:48 Order name: Glucose, Ancillary Testing; Complete Time: 10:54 [facility] 03/28 13:48 Order name: Comprehensive Metabolic Panel [facility] 03/28 13:49 Order name: CBC with Automated Diff [facility] 03/28 13:49 Order name: CBC with Automated Diff [facility] 03/28 13:49 Order name: Comprehensive Metabolic Panel [facility] 03/28 13:50 Order name: SARS-COV-2 RT PCR (Document "Date of Onset" if Symptomatic); Complete Time: eb 15:35 03/28 09:34 Order name: EKG; Complete Time: 09:34 [facility] 03/28 09:34 Order name: Cardiac monitoring; Complete Time: 09:38 [facility] 03/28 09:34 Order name: EKG - Nurse/Tech; Complete Time: 10:57 [facility] 03/28 09:34 Order name: IV Saline Lock; Complete Time: 09:40 [facility] 03/28 09:34 Order name: Labs collected and sent; Complete Time: 09:40 [facility] 03/28 09:34 Order name: O2 Per Protocol; Complete Time: 09:38 [facility] 03/28 09:34 Order name: O2 Sat Monitoring; Complete Time: 09:38 [facility] 03/28 13:49 Order name: 60g Consistent Carbohydrate (ADA 1800/1999) [facility] 03/28 13:59 Order name: Glucose, Ancillary Testing; Complete Time: 14:01 [facility] 03/28 14:01 Order name: Glucose, Ancillary Testing; Complete Time: 14:12 [facility] 03/28 14:14 Order name: C.difficile [facility] Ag [facility] 03/28 15:25 Order name: Glucose, Ancillary Testing; Complete Time: 15:35 [facility] 03/28 18:24 Order name: Glucose, Ancillary Testing [facility] 03/28 13:19 Order name: Fingerstick Glucose; Complete Time: 13:44 jm Administered Medications: 09:30 Drug: D50W 50 ml {Note: 1/2 amp administered per PA. Uziel} Route: IVP; Site: left jl7 antecubital; 09:40 Drug: HydroCORTISONE 100 mg Route: IVP; Site: left antecubital; jl7 18:04 Drug: Ativan (LORazepam) 0.5 mg Route: IVP; Site: left antecubital; ic1 Disposition Summary: 03/28/21 13:46 Hospitalization Ordered Hospitalization Status: Observation [facility] Provider: Vera Johns Location: Telemetry/MedSurg (observation) jmm Condition: Stable jmm Problem: new jmm Symptoms: are unchanged jmm Bed/Room Type: Standard [facility] Room Assignment: 216(03/28/21 17:51) ja Diagnosis - Hypoglycemia, unspecified jmm Forms: - Medication Reconciliation Form jmm - SBAR form [facility] Addendum: 03/30/2021 19:01 Co-signature as Attending Physician, Vaibhav Bacon MD. r n 19:01 I agree with the assessment and plan of care. Attestation: The patient's history, exam r n findings, diagnostics, and a summary of any interventions or procedures was reviewed in detail with Uziel MONTGOMERY. Signatures: Dispatcher [employer] [facility] Uziel Reyes PA PA [facility] Vaibhav Bacon MD MD rn Smirch, Shelby RN RN Gato Cowan RN RN jl7 Ascencion Dick RN RN ja1 Shante Ray RN Sonia Ariza RN RN ic1 Corrections: (The following items were deleted from the chart) 03/28 17:51 13:46 [facility] ja
--- NOTE | 2021-03-28 13:47 | ER ---
Nurse's Notes [facility] Name: Ascencion Saldana Jr Age: 35 yrs Sex: Male : 1985 Arrival Date: 03/28/2021 Time: 09:33 Bed 4 Private MD: Diagnosis: Hypoglycemia, unspecified Presentation: 03/28 09:34 Chief complaint: EMS states: Found unresponsive in garage by family. Unknown downtime. ss Family reported that initial BGL check ws 35. was given oral glucose to gums by family and Glucagon 1 gram IM by EMS. Pt is now A\T\O x2. Coronavirus screen: Client denies travel out of the [place] in the last 14 days. Ebola Screen: Patient denies exposure to infectious person. Patient denies travel to an Ebola-affected area in the 21 days before illness onset. Initial Sepsis Screen: Does the patient meet any 2 criteria? No. Patient's initial sepsis screen is negative. Does the patient have a suspected source of infection? No. Patient's initial sepsis screen is negative. Onset of symptoms is unknown. 09:34 Method Of Arrival: EMS: [facility] 09:34 Acuity: CAROLE 2 18:24 Risk Assessment: Do you want to hurt yourself or someone else? Patient reports no jl7 desire to harm self or others. Triage Assessment: 09:34 General: Appears in no apparent distress. Behavior is calm, cooperative. ic1 09:34 General: Appears unkempt, Behavior is quiet. Pain: Denies pain. EENT: No deficits ic1 noted. Neuro: Level of Consciousness is awake, alert, obeys commands, confused, Oriented to person, place. Cardiovascular: Rhythm is sinus rhythm. Respiratory: No deficits noted. GI: No deficits noted. : No deficits noted. Derm: No deficits noted. Musculoskeletal: No deficits noted. Historical: - Allergies: 09:34 No Known Allergies; ss - Home Meds: 10:14 atorvastatin 20 mg Oral tab 1 tab once daily [Active]; metformin 500 mg Oral tab laird [Active]; sertraline 100 mg Oral tab [Active]; enalapril maleate 10 mg Oral tab [Active]; Jardiance 25 mg oral tab [Active]; buspirone 30 mg Oral tab [Active]; - PMHx: 09:34 Depression; Diabetes - IDDM; GERD; High Cholesterol; mental handicap; Sleep Apnea; ss - Immunization history:: Adult Immunizations unknown. - Social history:: Smoking status: Patient denies any tobacco usage or history of. Screenin:38 Abuse screen: Denies threats or abuse. Denies injuries from another. Nutritional ss screening: No deficits noted. Tuberculosis screening: Never had TB. Fall Risk None identified. Assessment: 13:44 Reassessment: Pt finger glucose performed by this RN. Resulted at 35. Reported result ic1 to ED provider. Pt provided w sandwich, and 3 cups of apple juice. Tolerated. Pt stated he accidentally removed his IV. IV replaced and secured. VSS. Another 25mg of D50 provided via pt's IV. Reported to provider. 16:44 Reassessment: No changes from previously documented assessment. Patient and/or family ic1 updated on plan of care and expected duration. Pain level reassessed. 17:52 Reassessment: Pt best friend Abel came to visit pt and bring by his cell phone and ic1 leg man. Spoke with Abel and he stated pt may be taking too much insulin d/t short term memory loss. Pt recently had pcp visit and was informed to stop taking insulin. Abel states pt may have forgotten and still self administered. States he will return when pt is discharged to home. 18:48 Reassessment: Pt point of contact is best friend Rodolfo. Can be contacted at [phone].ic1 Vital Signs: 09:30 BP 161 / 116; Pulse 91; Resp 18; Temp 97.4(O); Pulse Ox 100% on R/A; Weight 120.2 kg; ss Height 5 ft. 5 in. (165.10 cm); Pain 0/10; 11:13 BP 136 / 87; Pulse 94; Resp 18 S; Pulse Ox 100% on R/A; ic1 12:30 BP 141 / 97; Pulse 84; Resp 15; Pulse Ox 98% ; jl7 13:39 BP 158 / 95; Pulse 90; Resp 15; Pulse Ox 99% ; jl7 16:43 BP 142 / 91; Pulse 87; Resp 18; Pulse Ox 100% ; ic1 18:09 BP 153 / 98; Pulse 105; Resp 18; Pulse Ox 96% on R/A; ic1 09:30 Body Mass Index 44.10 (120.20 kg, 165.10 cm) ED Course: 09:33 Patient arrived in ED. 09:33 [facility]yes [facility] 09:33 Vaibhav Bacon MD is Attending Physician. [facility] 09:34 Arm band placed on right wrist. ss 09:36 Triage completed. ss 09:38 Patient has correct armband on for positive identification. Placed in gown. Bed in low ss position. Call light in reach. Side rails up X 1. quality assurance monitor on. Pulse ox on. NIBP on. Warm blanket given. 09:38 Inserted saline lock: 20 gauge in left antecubital area, using aseptic technique. Blood ss collected. Patient maintains SpO2 saturation greater than 95% on room air. 09:40 Gato Ramirez, SAYRA is Primary Nurse. jl7 10:00 Initial lab(s) drawn, by ED staff, sent to lab. Urine collected: EKG done, by ED staff, jl7 reviewed by Vaibhav Bacon MD COVID swab sent to lab. 13:46 Vera Johns MD is Hospitalizing Provider. [facility] 18:23 No provider procedures requiring assistance completed. Patient admitted, IV remains in jl7 place. intact, No redness/swelling at site. Administered Medications: 09:30 Drug: D50W 50 ml {Note: 1/2 amp administered per PA. Uziel} Route: IVP; Site: left jl7 antecubital; 09:40 Drug: HydroCORTISONE 100 mg Route: IVP; Site: left antecubital; jl7 18:04 Drug: Ativan (LORazepam) 0.5 mg Route: IVP; Site: left antecubital; ic1 Outcome: 13:46 Decision to Hospitalize by Provider. [facility] 18:27 Admitted to Med/surg via wheelchair, room 216, Report called to SAYRA Gonzalez ic1 18:27 Condition: stable 18:57 Patient left the ED. ic1 Signatures: Uziel Reyes PA PA jmm Smirch, Shelby, RN RN ss Gato Ramirez RN RN jl7 Shante Ray RN RN ha Creggett, Iesha, RN RN ic1 Corrections: (The following items were deleted from the chart) 09:59 09:55 General: Appears ic1 ic1
--- NOTE | 2021-03-28 13:53 | P.HP ---
Certification for Inpatient Patient admitted to: Observation With expected LOS: <2 Midnights Patient will require the following post-hospital care: None Practitioner: I am a practitioner with admitting privileges, knowledge of patient current condition, hospital course, and medical plan of care. Services: Services provided to patient in accordance with Admission requirements found in Title 42 Section 412.3 of the Code of Federal Regulations Patient History Date of Service: 03/28/21 Reason for admission: Weakness and lethargy History of Present Illness: 35-year-old male past medical history of hypertension, diabetes mellitus, HLD, sleep apnea admitted after being found by family lethargic and poorly responsive this afternoon. Patient states he has gone to his garage to do some things and suddenly started to lose consciousness. Family has checked his glucose and was noted to be low at 37. He was giving honey thick liquid and EMS was called. On arrival EMS gave patient ferrous glucagon IM. And transferred to the ER. On arrival in the ER his glucose has improved to 172 on fingerstick and 101 on a BMP after he was given half dose of D50 as well as hydrocortisone but follow-up glucose 4 hours later showed glucose dropped to 35. He was receiving IVF normal saline. Patient admits to taking his long-acting insulin Bydureon dose last evening. He states he continued on his Invokana. He recently has this dose of metformin increased to 1 g twice daily 3 months ago. He reports he has been having diarrhea since the last 1 week which is usually watery but denies any fever chills or abdominal pain. He denies any recent antibiotics use.. No reported nausea vomiting. He has been admitted for observation for persistent hypoglycemia Allergies No Known Allergies Allergy (Verified 08/11/16 08:07) Home Medications: Canagliflozin [Invokana] 100 mg PO DAILY AFTER SUPPER 08/09/16 Desipramine HCl 100 mg PO DAILY AFTER SUPPER 08/09/16 Enalapril [Vasotec*] 10 mg PO DAILY AFTER SUPPER 08/09/16 Exenatide Microspheres [Bydureon Pen] 2 mg SQ EVERY 7TH DAY 08/09/16 Metformin HCl [Glucophage] 1,000 mg PO BID 08/09/16 Simvastatin [Zocor] 80 mg PO DAILY AFTER SUPPER 08/09/16 Sumatriptan [Imitrex*] 100 mg PO DAILY AFTER SUPPER 08/09/16 Pantoprazole [Protonix Tab*] 40 mg PO DAILY #30 tab 02/13/18 - Past Medical/Surgical History Diabetic: Yes -: obesity -: diabetes mellitus -: HTN -: sleep apnea -: dyslipidemia -: depression -: high cholesterol -: GERD -: mental handicap -: Cholecystectomy - Social History Smoking Status: Never smoker Smoking therapy provided: No Alcohol use: No CD- Drugs: No Caffeine use: No Place of Residence: Home Review of Systems 10-point ROS is otherwise unremarkable Physical Examination - Physical Exam General: Alert, In no apparent distress, Oriented x3, Obese HEENT: Atraumatic, Normocephalic, PERRLA Neck: Supple, 2+ carotid pulse no bruit, JVD not distended Respiratory: Clear to auscultation bilaterally, Normal air movement Cardiovascular: No edema, Normal pulses, Regular rate/rhythm, Normal S1 S2 Capillary refill: <2 Seconds Gastrointestinal: Normal bowel sounds, Soft and benign, Non-distended Musculoskeletal: No clubbing, No swelling Integumentary: No rashes, No breakdown, No significant lesion Neurological: Normal gait, Normal speech, Normal strength at 5/5 x4 extr External genitalia: No edema, No lesions - Studies Laboratory Data (last 24 hrs) 03/28/21 09:34: PT 11.5, INR 1.00 03/28/21 09:34: WBC 17.10 H, Hgb 18.1 H, Hct 56.1 H, Plt Count 384 03/28/21 09:34: Sodium 141, Potassium 3.6, BUN 11, Creatinine 1.03, Glucose 101, Magnesium 2.7 H, Total Bilirubin 0.2, AST 30, ALT 40, Alkaline Phosphatase 94 Assessment and Plan - Plan Persistent hypoglycemiadue to insulin dosage Diabetes mellitus Hypertension HLD Diarrhea Plan -Will review home medications, hold off hypoglycemic meds for now We will admit patient to observation Will do Accu-Cheks every 6 We will hold off insulin coverage for now but restart if persistent hyperglycemia above 200 Start gentle IV fluid D5 NS Repeat D50 1 amp x1 now Monitor improvement in mental status with improving glucose level DVT prophylaxis with Lovenox Resume blood pressure regimen Will obtain stool for C. difficile Avoid nephrotoxins Possible discharge in a.m. - Advance Directives Does patient have a Living Will: No Does patient have a Durable POA for Healthcare: No
[2021-03-28] MEDS: D5 0.9 NS 1,000 ML IV SCH (14:00)
[2021-03-28] MEDS: ENALAPRIL 10 MG TAB PO SCH (17:30)
[2021-03-28] MEDS ORDERED: SIMVASTATIN 80 MG PO SCH (17:30)
[2021-03-28] MEDS ORDERED: LORazepam 2 MG/ML VIAL ONE (18:02)
[2021-03-28] MEDS: FAMOTIDINE 20 MG TAB PO SCH (20:25)
[2021-03-28] MEDS: ATORVASTATIN 40 MG TAB PO SCH (20:25)
[2021-03-28 21:27] VITALS: BMI 35.7
[2021-03-29] MEDS: D5 0.9 NS 1,000 ML IV SCH ×3 (00:19→19:47)
[2021-03-29] MEDS: D50W 25 GM/50 ML SYRINGE IV PRN ×2 (05:34→06:11)
[2021-03-29 05:47] LABS: Absolute Lymphocytes (CBC) 3.1 K/uL (0.7-4.9); Hematocrit 47.2 % (39.6-49.0); Lymphocytes % 30.2 % (15.3-44.8); MPV 6.3 fL (7.6-11.3); RBC Red Blood Cell Count 5.65 M/uL (4.33-5.43)
[2021-03-29 06:22] LABS: ALT/SGPT 32 U/L (12-78); AST/SGOT 19 U/L (15-37); Alkaline Phosphatase 70 U/L (45-117); BUN Blood Urea Nitrogen 14 mg/dL (7-18); Bicarbonate 27 mmol/L (21-32); Bilirubin Total 0.3 mg/dL (0.2-1.0); Potassium 3.5 mmol/L (3.5-5.1); Protein, Total 6.3 g/dL (6.4-8.2); Sodium Level 141 mmol/L (136-145)
[2021-03-29 06:32] LABS: Glucose Level 35 mg/dL (74-106)
[2021-03-29] MEDS: ENOXAPARIN 40 MG/0.4 ML SQ SCH (09:06)
[2021-03-29] MEDS: ZINC SULFATE 220 MG CAP PO SCH (09:06)
[2021-03-29] MEDS: FAMOTIDINE 20 MG TAB PO SCH ×2 (09:06→19:38)
[2021-03-29] MEDS: ENALAPRIL 10 MG TAB PO SCH (18:14)
[2021-03-29] MEDS: ATORVASTATIN 40 MG TAB PO SCH (19:39)
[2021-03-30 04:41] VITALS: O2SAT 97
[2021-03-30] MEDS: D5 0.9 NS 1,000 ML IV SCH (06:00)
[2021-03-30 06:06] LABS: Absolute Lymphocytes (CBC) 2.9 K/uL (0.7-4.9); Hematocrit 48.1 % (39.6-49.0); Lymphocytes % 35.5 % (15.3-44.8); MPV 6.1 fL (7.6-11.3); RBC Red Blood Cell Count 5.79 M/uL (4.33-5.43)
[2021-03-30 07:31] LABS: BUN Blood Urea Nitrogen 10 mg/dL (7-18); Bicarbonate 26 mmol/L (21-32); Glucose Level 81 mg/dL (74-106); Magnesium 2.3 mg/dL (1.8-2.4); Potassium 3.9 mmol/L (3.5-5.1); Sodium Level 141 mmol/L (136-145)
[2021-03-30] MEDS: ENOXAPARIN 40 MG/0.4 ML SQ SCH (09:00)
[2021-03-30] MEDS: ZINC SULFATE 220 MG CAP PO SCH (09:08)
[2021-03-30] MEDS: FAMOTIDINE 20 MG TAB PO SCH (09:08)
[2021-03-30 13:15] VITALS: BP 153/90; TEMP 97.1
== END 2021-03-30 16:05 | disposition home or self-care (01) | DRG 639 ==
LOC: ER 09:31 → ERHOLD 14:14 → 2ND 18:28 → OBSVTOIN 03-29 11:49
PROVIDERS: ADMIT Internal Medicine; ATTEND Internal Medicine
DX: E11.649 Type 2 diabetes mellitus with hypoglycemia without coma (principal); I10 Essential (primary) hypertension; E78.5 Hyperlipidemia, unspecified; T38.3X5A Adverse effect of insulin and oral hypoglycemic [antidiabetic] drugs, initial encounter; Y92.009 Unspecified place in unspecified non-institutional (private) residence as the place of occurrence of the external cause; G47.30 Sleep apnea, unspecified; E66.9 Obesity, unspecified; Z68.35 Body mass index [BMI] 35.0-35.9, adult; Z20.822 Contact with and (suspected) exposure to COVID-19
CPT/HCPCS: 36415; 80048; 80053; 80076; 82947; 83036; 83735; 83880; 84484; 85025; 85610; 93005; 94760; 96374; 96375; 99285; G0378; J1650; J1720; J7030; J7042; U0003

== ENCOUNTER 2021-08-19 20:58 | Emergency (ER) | payer OTHER ==
[2021-08-19] MEDS ORDERED: LIDOCAINE 1% MPF 5 ML VIAL ONE ×2 (22:00→22:02)
--- NOTE | 2021-08-19 22:28 | ER ---
Nurse's Notes [facility] Name: Ascencion Saldana Jr Age: 36 yrs Sex: Male : 1985 Arrival Date: 08/19/2021 Time: 21:00 Bed 12 Private MD: Diagnosis: Paraphimosis-reduced Presentation: 08/19 21:30 Chief complaint: Patient states: Reports penile swelling after retracting foreskin, lp1 unable to return to normal position due to swelling. Coronavirus screen: At this time, the client does not indicate any symptoms associated with coronavirus-19. Ebola Screen: No symptoms or risks identified at this time. Initial Sepsis Screen: Does the patient meet any 2 criteria? No. Patient's initial sepsis screen is negative. Does the patient have a suspected source of infection? No. Patient's initial sepsis screen is negative. Risk Assessment: Do you want to hurt yourself or someone else? Patient reports no desire to harm self or others. Onset of symptoms was August 19, 2021. 21:30 Method Of Arrival: Ambulatory lp1 21:30 Acuity: CAROLE 4 lp1 Historical: - Allergies: 21:33 No Known Allergies; lp1 - Home Meds: 21:33 atorvastatin 20 mg Oral tab 1 tab once daily [Active]; buspirone 30 mg Oral tab lp1 [Active]; Jardiance 25 mg Oral tab [Active]; metformin 500 mg Oral tab [Active]; sertraline 100 mg Oral tab [Active]; - PMHx: 21:33 Depression; Diabetes - IDDM; GERD; mental handicap; High Cholesterol; Sleep Apnea; lp1 - PSHx: 21:33 Cholecystectomy; lp1 - Immunization history:: Adult Immunizations up to date. - Social history:: Smoking status: Patient reports use of chewing tobacco. Screenin:34 Abuse screen: Denies threats or abuse. Denies injuries from another. Nutritional lp1 screening: No deficits noted. Tuberculosis screening: No symptoms or risk factors identified. Fall Risk None identified. Assessment: 22:00 General: Appears in no apparent distress. Behavior is appropriate for age. Pain: lp1 Complains of pain in pelvis Pain currently is 7 out of 10 on a pain scale. Neuro: Level of Consciousness is awake, alert, obeys commands. Cardiovascular: Patient's skin is warm and dry. Respiratory: Respiratory effort is even, unlabored. GI: No signs and/or symptoms were reported involving the gastrointestinal system. : Reports Penile pain/swelling. EENT: No signs and/or symptoms were reported regarding the EENT system. Derm: Skin is pink, warm \T\ dry. Musculoskeletal: No deficits noted. 22:45 Reassessment: Ointment applied to penis, minimal bleeding noted; patient appears in no lp1 significant discomfort at this time. Vital Signs: 21:30 BP 159 / 99; Pulse 86; Resp 18; Temp 98.2(O); Pulse Ox 100% on R/A; Weight 95.25 kg lp1 (R); Height 5 ft. 5 in. (165.10 cm); 21:30 Body Mass Index 34.95 (95.25 kg, 165.10 cm) lp1 ED Course: 21:00 Patient arrived in ED. ag3 21:30 Tamra Islas, RN is Primary Nurse. lp1 21:30 Arm band placed on. lp1 21:33 Triage completed. lp1 21:33 Rey Reyes MD is Attending Physician. catalina 21:34 Patient has correct armband on for positive identification. lp1 22:27 Gustavo Culver MD is Referral Physician. catalina 22:49 No provider procedures requiring assistance completed. Patient did not have IV access lp1 during this emergency room visit. Administered Medications: 21:57 Drug: Bupivacaine (0.5 %) 3 ml Volume: 10 ml; Route: Infiltration; lp1 21:57 Drug: Lidocaine (1 %) 3 ml Volume: 5 ml; Route: Infiltration; lp1 22:20 CANCELLED (Duplicate Order): morphine 4 mg IVP once over 4 mins catalina 22:20 CANCELLED (Duplicate Order): Zofran (Ondansetron) 4 mg IVP once; over 2 minutes catalina 22:34 CANCELLED (Physician Discretion): NS 0.9% 1000 ml IV at 1 bolus Per protocol; 1000 mL lp1 bolus 22:44 Drug: Bactroban (mupirocin) Ointment 2 % 1 application Route: Topical; Site: affected lp1 area; 22:51 Follow up: Response: Medication administered at discharge. lp1 22:45 Drug: KeFLEX (cephalexin) 500 mg Route: PO; lp1 22:51 Follow up: Response: Medication administered at discharge. lp1 Medication: 21:34 VIS not applicable for this client. lp1 Outcome: 22:27 Discharge ordered by . catalina 22:49 Discharged to home ambulatory, with friend. lp1 22:49 Condition: good 22:49 Discharge instructions given to patient, Instructed on discharge instructions, follow up and referral plans. medication usage, Demonstrated understanding of instructions, follow-up care, medications, Prescriptions given X 2. 22:51 Patient left the ED. lp1 Signatures: Rey Reyes MD MD cha Pena, Laura, RN RN lp1 Roselyn Chappell3
--- NOTE | 2021-08-19 22:28 | EDPHYS ---
Physician Documentation [facility] Name: Ascencion Saldana Jr Age: 36 yrs Sex: Male : 1985 Arrival Date: 08/19/2021 Time: 21:00 Bed 12 Private MD: ED Physician Rey Reyes HPI: 08/19 22:21 This 36 yrs old Male presents to ER via Ambulatory with complaints of GENITAL catalina SWELLING. 22:21 The patient presents with urinary symptoms, dribbling of urine. Onset: The catalina symptoms/episode began/occurred 1 day(s) ago. Modifying factors: The symptoms are alleviated by nothing, the symptoms are aggravated by nothing. Associated signs and symptoms: The patient has no apparent associated signs or symptoms. Severity of symptoms: At their worst the symptoms were moderate, severe, in the emergency department the symptoms are unchanged. Historical: - Allergies: 21:33 No Known Allergies; lp1 - Home Meds: 21:33 atorvastatin 20 mg Oral tab 1 tab once daily [Active]; buspirone 30 mg Oral tab lp1 [Active]; Jardiance 25 mg Oral tab [Active]; metformin 500 mg Oral tab [Active]; sertraline 100 mg Oral tab [Active]; - PMHx: 21:33 Depression; Diabetes - IDDM; GERD; mental handicap; High Cholesterol; Sleep Apnea; lp1 - PSHx: 21:33 Cholecystectomy; lp1 - Immunization history:: Adult Immunizations up to date. - Social history:: Smoking status: Patient reports use of chewing tobacco. ROS: 22:23 Constitutional: Negative for fever, chills, and weight loss, Eyes: Negative for injury, catalina pain, redness, and discharge, ENT: Negative for injury, pain, and discharge, Neck: Negative for injury, pain, and swelling, Cardiovascular: Negative for chest pain, palpitations, and edema, Respiratory: Negative for shortness of breath, cough, wheezing, and pleuritic chest pain, Abdomen/GI: Negative for abdominal pain, nausea, vomiting, diarrhea, and constipation, Back: Negative for injury and pain, MS/Extremity: Negative for injury and deformity, Skin: Negative for injury, rash, and discoloration, Neuro: Negative for headache, weakness, numbness, tingling, and seizure, Psych: Negative for depression, anxiety, suicide ideation, homicidal ideation, and hallucinations, Allergy/Immunology: Negative for hives, rash, and allergies, Endocrine: Negative for neck swelling, polydipsia, polyuria, polyphagia, and marked weight changes. 22:23 : Positive for penile pain, of the head of penis. Exam: 22:23 Constitutional: This is a well developed, well nourished patient who is awake, alert, catalina and in no acute distress. Head/Face: Normocephalic, atraumatic. Eyes: Pupils equal round and reactive to light, extra-ocular motions intact. Lids and lashes normal. Conjunctiva and sclera are non-icteric and not injected. Cornea within normal limits. Periorbital areas with no swelling, redness, or edema. ENT: Nares patent. No nasal discharge, no septal abnormalities noted. Tympanic membranes are normal and external auditory canals are clear. Oropharynx with no redness, swelling, or masses, exudates, or evidence of obstruction, uvula midline. Mucous membranes moist. Neck: Trachea midline, no thyromegaly or masses palpated, and no cervical lymphadenopathy. Supple, full range of motion without nuchal rigidity, or vertebral point tenderness. No Meningismus. Chest/axilla: Normal chest wall appearance and motion. Nontender with no deformity. No lesions are appreciated. Cardiovascular: Regular rate and rhythm with a normal S1 and S2. No gallops, murmurs, or rubs. Normal PMI, no JVD. No pulse deficits. Respiratory: Lungs have equal breath sounds bilaterally, clear to auscultation and percussion. No rales, rhonchi or wheezes noted. No increased work of breathing, no retractions or nasal flaring. Abdomen/GI: Soft, non-tender, with normal bowel sounds. No distension or tympany. No guarding or rebound. No evidence of tenderness throughout. Back: No spinal tenderness. No costovertebral tenderness. Full range of motion. Skin: Warm, dry with normal turgor. Normal color with no rashes, no lesions, and no evidence of cellulitis. MS/ Extremity: Pulses equal, no cyanosis. Neurovascular intact. Full, normal range of motion. Neuro: Awake and alert, GCS 15, oriented to person, place, time, and situation. Cranial nerves II-XII grossly intact. Motor strength 5/5 in all extremities. Sensory grossly intact. Cerebellar exam normal. Normal gait. Psych: Awake, alert, with orientation to person, place and time. Behavior, mood, and affect are within normal limits. 22:23 : Male external genitalia: Patient is not circumisioned. swelling: tenderness, Bladder: is normal, Sexual behavior: the patient is sexually active, and reports a single partner. Vital Signs: 21:30 BP 159 / 99; Pulse 86; Resp 18; Temp 98.2(O); Pulse Ox 100% on R/A; Weight 95.25 kg lp1 (R); Height 5 ft. 5 in. (165.10 cm); 21:30 Body Mass Index 34.95 (95.25 kg, 165.10 cm) lp1 Procedures: 22:24 Nerve block: (regional) of penile. Medication: Lidocaine 1% without epinephrine catalina Marcaine 0.5%, Amount: 6 mls were injected, Effect: the patient's symptoms are improved, markedly, Set up for procedure. Performed by Rey Reyes MD Patient tolerated well. Performed paraphimosis reduced. MDM: 21:33 Patient medically screened. [facility] 22:29 Data reviewed: vital signs, nurses notes. [facility] 08/19 21:51 Order name: Dressing - Wound; Complete Time: 22:35 [facility] 08/19 21:51 Order name: Gloves, Sterile; Complete Time: 22:35 [facility] 08/19 21:51 Order name: Setup Suture Tray; Complete Time: 22:35 catalina Administered Medications: 21:57 Drug: Bupivacaine (0.5 %) 3 ml Volume: 10 ml; Route: Infiltration; lp1 21:57 Drug: Lidocaine (1 %) 3 ml Volume: 5 ml; Route: Infiltration; lp1 22:20 CANCELLED (Duplicate Order): morphine 4 mg IVP once over 4 mins catalina 22:20 CANCELLED (Duplicate Order): Zofran (Ondansetron) 4 mg IVP once; over 2 minutes catalina 22:34 CANCELLED (Physician Discretion): NS 0.9% 1000 ml IV at 1 bolus Per protocol; 1000 mL lp1 bolus 22:44 Drug: Bactroban (mupirocin) Ointment 2 % 1 application Route: Topical; Site: affected lp1 area; 22:51 Follow up: Response: Medication administered at discharge. lp1 22:45 Drug: KeFLEX (cephalexin) 500 mg Route: PO; lp1 22:51 Follow up: Response: Medication administered at discharge. lp1 Disposition Summary: 08/19/21 22:27 Discharge Ordered Location: Home [facility] Problem: new catalina Symptoms: have improved catalina Condition: Stable catalina Diagnosis - Paraphimosis - reduced catalina Followup: catalina - With: Private Physician - When: 2 - 3 days - Reason: Re-evaluation by your physician Followup: catalina - With: Gustavo Culver MD - When: 2 - 3 days - Reason: Recheck today's complaints, Continuance of care, Re-evaluation by your physician Discharge Instructions: - Discharge Summary Sheet [facility] - Circumcision Information catalina - Paraphimosis [facility] Forms: - Medication Reconciliation Form [facility] - Thank You Letter [facility] - Antibiotic Education [facility] - Prescription Opioid Use [facility] - Work release form lp1 Prescriptions: - Cephalexin 500 mg Oral Capsule - take 1 capsule by ORAL route every 6 hours for 10 days; 40 capsule; Refills: 0, catalina Product Selection Permitted - Cent[facility] 2 % Topical ointment - apply 1 application by TOPICAL route 3 times per day; 30 gram; Refills: 0, [facility] Product Selection Permitted Signatures: Dispatcher [employer] EDRey Evangelista MD MD cha Pena, Laura RN RN lp1 Corrections: (The following items were deleted from the chart) 22:20 21:51 morphine 4 mg IVP once over 4 mins ordered. [facility] 22:20 21:51 Zofran (Ondansetron) 4 mg IVP once; over 2 minutes ordered. [facility] 22:34 21:51 NS 0.9% 1000 ml IV at 1 bolus Per protocol; 1000 mL bolus ordered. [facility]
[2021-08-19] MEDS ORDERED: CEPHALEXIN 250 MG CAP ONE (22:43)
[2021-08-19] MEDS ORDERED: MUPIROCIN 2% OINT 22GM TUBE TOP ONE (22:44)
[2021-08-19 23:01] VITALS: BP 159/99; TEMP 98.2; O2SAT 100
[2021-08-19] MEDS ORDERED: IPRATROPIUM BROM 0.5MG/2.5ML ONE (23:21)
[2021-08-19] MEDS ORDERED: METHYLPREDNISOLONE 125 MG INJ ONE (23:21)
[2021-08-19] MEDS ORDERED: ALBUTEROL 2.5 MG/3 ML NEB SOL ONE (23:21)
== END 2021-08-19 22:51 | disposition home or self-care (01) ==
LOC: ER 20:58
DX: N47.2 Paraphimosis (principal); E11.9 Type 2 diabetes mellitus without complications; E78.00 Pure hypercholesterolemia, unspecified; K21.9 Gastro-esophageal reflux disease without esophagitis; F17.220 Nicotine dependence, chewing tobacco, uncomplicated
CPT/HCPCS: 99283; J2930